=== PATIENT | female | born 1985 | race American Indian/Alaskan Native ===

== ENCOUNTER 2019-05-23 15:09 | Emergency (ER) | payer SELFPAY ==
[2019-05-23] MEDS ORDERED: ACETAMINOPHEN 325 MG TAB PO ONE (15:56)
[2019-05-23 15:59] VITALS: BP 153/104
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
[2019-05-23 17:04] LABS: HCG Qualitative,Urine Negative (Negative)
[2019-05-23 17:05] LABS: Bacteria,Urine 1+ /HPF (Negative); Bilirubin,Urine NEG (Negative); Blood,Urine NEG (Negative); Color,Urine Yellow (Yellow); Hyaline Casts,Urine 2 /LPF; Mucus,Urine 3+ /HPF; Protein,Urine <15 mg/dL mg/dL (Negative)
--- NOTE | 2019-05-23 17:54 | XRay Report ---
. RIGHT KNEE 3 VIEWS INDICATION / CLINICAL INFORMATION: Trauma. COMPARISON: None available. FINDINGS: No fracture, dislocation or right knee effusion is present. Mild degenerative arthrosis is seen withi n the patellofemoral and medial femoral tibial compartments. Signer Name: Roberto Carrasquillo MD Signed: 05/23/2019 5:49 PM Workstation Name: [id number]
--- NOTE | 2019-05-23 17:58 | XRay Report ---
RIGHT HAND RADIOGRAPH 3 VIEWS INDICATION / CLINICAL INFORMATION: Trauma COMPARISON: None available. FINDINGS: BONES / JOINT(S): No acute displaced fracture or subluxation. No significant arthritis. SOFT TISSUES: There is an approximately 5 mm linear radiopaque density projecting within the volar so ft tissues of the wrist anterior to the distal radioulnar joint, correlate for the possibility of a small retained foreign object. Otherwise no significant soft tissue abnormality. ADDITIONAL FINDINGS: None. Signer Name: Gracie Bradford MD Signed: 05/23/2019 5:53 PM Workstation Name: [id number]
== END 2019-05-23 19:45 | disposition left against medical advice (07) ==
LOC: ED 15:09
DX: M25.561 Pain in right knee (principal); Z53.21 Procedure and treatment not carried out due to patient leaving prior to being seen by health care provider
CPT/HCPCS: 81001; 81025

== ENCOUNTER 2020-06-25 20:28 | Emergency (ER) | payer MEDICAID ==
[2020-06-25 21:01] VITALS: BP 159/110
[2020-06-25 21:20] LABS: Basophils # (Auto) 0.1 K/mm3 (0.0-0.1); Eosinophils # (Auto) 0.4 K/mm3 (0.0-0.4); Eosinophils % (Auto) 4.3 % (0.0-4.3); Hematocrit 37.8 % (30.3-42.9); Hemoglobin 12.3 gm/dl (10.1-14.3); Lymphocytes # (Auto) 2.1 K/mm3 (1.2-5.4); Mean Corpuscular HGB Conc 33 % (30-34); Mean Corpuscular Volume 77 fl (79-97); Monocytes # (Auto) 0.4 K/mm3 (0.0-0.8); Monocytes % (Auto) 4.8 % (0.0-7.3); Platelet Count 293 K/mm3 (140-440); Red Blood Count 4.91 M/mm3 (3.65-5.03)
--- NOTE | 2020-06-25 21:35 | Emergency Department Report ---
ED Chest Pain HPI - General Chief Complaint: Chest Pain Stated Complaint: CHEST PAIN/HEADACHE Time Seen by Provider: 06/25/20 21:00 Source: patient Mode of arrival: Ambulatory Limitations: No Limitations - History of Present Illness Initial Comments: This is a 34-year-old female with a history of hypertension newly diagnosed currently on medication presents the ED complaining of bilateral sided chest pain x3 days. Patient states pain usually began on the right side and now she can feel it on the left as well. Patient denies any injury or trauma to the chest. She denies fever/cough/runny nose or any other symptoms. She denies shortness of breath. Patient states she states she takes amlodipine 10 mg and just recently started taking it. She denies vomiting abdominal pain MD Complaint: chest pain - Related Data Previous Rx's Medication Instructions Recorded Last Taken Type Naproxen [Naprosyn] 500 mg PO BID #30 tablet 06/25/20 Unknown Rx Allergies Allergy/AdvReac Type Severity Reaction Status Date / Time No Known Allergies Allergy Unverified 05/23/19 15:15 Heart Score - HEART Score History: Slightly suspicious EKG: Normal Age: < 45 Risk factors: 1-2 risk factors Troponin: < normal limit HEART Score: 1 ED Review of Systems ROS: Stated complaint: CHEST PAIN/HEADACHE Other details as noted in HPI Comment: All other systems reviewed and negative ED Past Medical Hx - Past Medical History Previous Medical History?: No - Surgical History Additional Surgical History: breast reduction, uterine ablation. - Social History Smoking Status: Never Smoker - Medications Home Medications: Home Medications Medication Instructions Recorded Confirmed Last Taken Type Naproxen [Naprosyn] 500 mg PO BID #30 tablet 06/25/20 Unknown Rx ED Physical Exam - General Limitations: No Limitations General appearance: alert, in no apparent distress - Head Head exam: Present: atraumatic, normocephalic - Eye Eye exam: Present: normal appearance - ENT ENT exam: Present: mucous membranes moist - Neck Neck exam: Present: normal inspection - Respiratory Respiratory exam: Present: normal lung sounds bilaterally. Absent: respiratory distress, wheezes, chest wall tenderness, accessory muscle use - Cardiovascular Cardiovascular Exam: Present: regular rate, normal rhythm. Absent: systolic murmur, diastolic murmur, rubs, gallop - GI/Abdominal GI/Abdominal exam: Present: soft, normal bowel sounds - Extremities Exam Extremities exam: Present: normal inspection - Back Exam Back exam: Present: normal inspection - Neurological Exam Neurological exam: Present: alert, oriented X3 - Psychiatric Psychiatric exam: Present: normal affect, normal mood - Skin Skin exam: Present: warm, dry, intact, normal color. Absent: rash ED Course Vital Signs 06/25/20 20:59 Temperature 98.0 F Pulse Rate 85 Respiratory 18 Rate Blood Pressure 159/110 O2 Sat by Pulse 99 Oximetry ARI score - Ari Score Age > 65: (0) No Aspirin use within the Past 7 Days: (0) No 3 or more CAD Risk Factors: (0) No 2 or more Angina events in past 24 hrs: (0) No Known CAD with more than 50% Stenosis: (0) No Elevated Cardiac Markers: (0) No ST Deviation Greater than 0.5mm: (0) No ARI Score: 0 ED Medical Decision Making - Lab Data Result diagrams: 06/25/20 21:10 06/25/20 21:10 Laboratory Last Values WBC 8.4 K/mm3 (4.5-11.0) 06/25/20 21:10 RBC 4.91 M/mm3 (3.65-5.03) 06/25/20 21:10 Hgb 12.3 gm/dl (10.1-14.3) 06/25/20 21:10 Hct 37.8 % (30.3-42.9) 06/25/20 21:10 MCV 77 fl (79-97) L 06/25/20 21:10 MCH 25 pg (28-32) L 06/25/20 21:10 MCHC 33 % (30-34) 06/25/20 21:10 RDW 15.0 % (13.2-15.2) 06/25/20 21:10 Plt Count 293 K/mm3 (140-440) 06/25/20 21:10 Lymph % (Auto) 25.0 % (13.4-35.0) 06/25/20 21:10 [place] % (Auto) 4.8 % (0.0-7.3) 06/25/20 21:10 Eos % (Auto) 4.3 % (0.0-4.3) 06/25/20 21:10 Baso % (Auto) 1.0 % (0.0-1.8) 06/25/20 21:10 Lymph # (Auto) 2.1 K/mm3 (1.2-5.4) 06/25/20 21:10 [place] # (Auto) 0.4 K/mm3 (0.0-0.8) 06/25/20 21:10 Eos # (Auto) 0.4 K/mm3 (0.0-0.4) 06/25/20 21:10 Baso # (Auto) 0.1 K/mm3 (0.0-0.1) 06/25/20 21:10 Seg Neutrophils % 64.9 % (40.0-70.0) 06/25/20 21:10 Seg Neutrophils # 5.4 K/mm3 (1.8-7.7) 06/25/20 21:10 Sodium 137 mmol/L (137-145) 06/25/20 21:10 Potassium 3.6 mmol/L (3.6-5.0) 06/25/20 21:10 Chloride 103.2 mmol/L (98-107) 06/25/20 21:10 Carbon Dioxide 23 mmol/L (22-30) 06/25/20 21:10 Anion Gap 14 mmol/L 06/25/20 21:10 BUN 7 mg/dL (7-17) 06/25/20 21:10 Creatinine 0.7 mg/dL (0.6-1.2) 06/25/20 21:10 Estimated GFR > 60 ml/min 06/25/20 21:10 BUN/Creatinine Ratio 10 % 06/25/20 21:10 Glucose 114 mg/dL (65-100) H 06/25/20 21:10 Calcium 9.0 mg/dL (8.4-10.2) 06/25/20 21:10 Troponin T < 0.010 ng/mL (0.00-0.029) 06/25/20 21:10 - EKG Data EKG shows normal: sinus rhythm Rate: normal - EKG Data Interpretation: no acute changes, normal EKG - Radiology Data Radiology results: report reviewed, image reviewed CHEST 2 VIEWS INDICATION / CLINICAL INFORMATION: Chest Pain. COMPARISON: None available. FINDINGS: SUPPORT DEVICES: None. HEART / MEDIASTINUM: No significant abnormality. LUNGS / PLEURA: No significant pulmonary or pleural abnormality. No pneu mothorax. ADDITIONAL FINDINGS: No significant additional findings. IMPRESSION: 1. No acute findings. Signer Name: Bubba Moser MD Signed: 06/25/2020 9:40 PM Workstation Name: [id number] Transcribed By: Dictated By: BUBBA MOSER III Electronically Authenticated By: BUBBA MOSER III Signed Date/Time: 06/25/200 - Medical Decision Making This 34-year-old female presents with chest pain and sepsis secondary to costochondritis. All labs are within normal limits. EKG within normal, chest x-ray normal. Troponin negative x2. Discussed all findings with patient. Discussed with patient naproxen for pain. Plan is to follow-up with primary care physician as well as a certified medical coding specialist as referred. Vital signs are normal patient is in no acute or respiratory distress. She understands instructions as given. Critical care attestation.: If time is entered above; I have spent that time in minutes in the direct care of this critically ill patient, excluding procedure time. ED Disposition Clinical Impression: Atypical chest pain, Acute costochondritis Disposition: TO HOME OR SELFCARE Is pt being admited?: No Does the pt Need Aspirin: No Condition: Stable Instructions: Nonspecific Chest Pain, Adult, Costochondritis Additional Instructions: Make sure to follow up with the primary care physician as discussed. Take all your medications as you've been prescribed. If you have any worsening symptoms or develop new symptoms please return to ED immediately. Prescriptions: Naproxen [Naprosyn] 500 mg PO BID #30 tablet Referrals: PRIMARY MD THIERRY [Primary Care Provider] - 3-5 Days CARL GABRIEL MD [Staff Physician] - 3-5 Days [facility] [Outside] - 3-5 Days [facility] [Outside] - 3-5 Days Forms: Work/School Release Form(ED) Time of Disposition: 22:58
[2020-06-25 21:42] LABS: Blood Urea Nitrogen 7 mg/dL (7-17); Hemolysis Index 8
--- NOTE | 2020-06-25 21:45 | XRay Report ---
CHEST 2 VIEWS INDICATION / CLINICAL INFORMATION: Chest Pain. COMPARISON: None available. FINDINGS: SUPPORT DEVICES: None. HEART / MEDIASTINUM: No significant abnormality. LUNGS / PLEURA: No significant pulmonary or pleural abnormality. No pneumothorax. ADDITIONAL FINDINGS: No significant additional findings. IMPRESSION: 1. No acute findings. Signer Name: Donovan Moser MD Signed: 06/25/2020 9:40 PM Workstation Name: [id number]
[2020-06-25 21:47] LABS: BUN/Creatinine Ratio 10
== END 2020-06-26 00:03 | disposition home or self-care (01) ==
LOC: ED 20:28
DX: M94.0 Chondrocostal junction syndrome [Tietze] (principal); Z79.899 Other long term (current) drug therapy
CPT/HCPCS: 36415; 71046; 80048; 84484; 85025; 93005